=== PATIENT | female | born 1930 | race African-American/Black ===

== ENCOUNTER 2017-01-05 09:38 | Emergency (ER) | payer OTHER ==
[~2017-01-05 09:38] MED LIST: ADVIL PO; CAT2 PO; CIP2 PO; COREG3 PO; COZ25 PO; COZ50 PO; COZAAR100 MG PO; COZAR; DSS PO; FLAGIV500 IV; FLEXERIL5 MG PO; FLORASTOR250 MG PO; HCTZ; HCTZ25B PO; KLOR-CON; KLOR-CON 1010 MEQ PO; L20 PO; LEVAQUIN750 MG PO; LIPITOR80 MG; LORTAB10 PO; LOSARTAN; MCZ125 PO; METOPROLOL; MIRALAXPKT PO; MOMUD PO; NORCO1 TAB PO; NORV10 PO; NORV25 PO; NORV5 PO; OMEPRAZOLE; PLAVIX PO; PRILO PO; PRILOSEC40 MG PO; PRIN20 PO; PROTONIX PO; PROTONIX20 MG PO; REQUIP1 PO; REQUIP5 PO; SENTAB PO; SUCR PO; ZOFRAN ODT4 MG PO
== END 2017-01-05 11:30 | disposition home or self-care (01) ==
LOC: ER 09:38
DX: J30.9 Allergic rhinitis, unspecified (principal); I10 Essential (primary) hypertension; K21.9 Gastro-esophageal reflux disease without esophagitis; Z88.5 Allergy status to narcotic agent; Z88.6 Allergy status to analgesic agent; Z88.1 Allergy status to other antibiotic agents; Z79.899 Other long term (current) drug therapy
CPT/HCPCS: 99283